=== PATIENT | female | born 1965 | race African-American/Black ===

== ENCOUNTER 2017-07-18 20:24 | Observation (INO) ==
[2017-07-18] MEDS ORDERED: hydrALAZINE 20 MG/1 ML VIAL IV STA ×2 (21:46→23:29)
[2017-07-18] MEDS ORDERED: ASPIRIN 325 MG TABLET PO STA (21:46)
[2017-07-18] MEDS ORDERED: ONDANSETRON 4 MG/2 ML VIAL IV STA (21:46)
[2017-07-18] MEDS ORDERED: ASPIRIN 325 MG TABLET ONE (21:57)
[2017-07-18] MEDS ORDERED: ONDANSETRON 4 MG/2 ML VIAL ONE (21:57)
[2017-07-18] MEDS ORDERED: hydrALAZINE 20 MG/1 ML VIAL ONE ×2 (21:57→23:29)
[2017-07-18 22:05] LABS: Basophils % 0.5 % (0.0-0.8); Eosinophils # 0.1 10*3/uL (0.0-0.87); Eosinophils % 2.5 % (0.00-10.9); Hematocrit 32.8 VOL% (35.7-47.0); Hemoglobin 9.7 GM/DL (12.0-16.0); Immature Granulocytes % 0.2 %; Immature Granulocytes Absolute 0.01 #; Lymphocytes # 1.1 10*3/uL (1.4-4.0); Mean Corpuscular HGB Conc 29.6 GM/DL (32-36); Mean Corpuscular Hemoglobin 21 PG (27-34); Mean Corpuscular Volume 71.5 FL (87-102); Mean Platelet Volume 11.1 FL (9.6-12.0); Monocytes # 0.5 10*3/uL (0.11-0.8); Monocytes % 11.9 % (1.7-12.7); Neutrophils # 2.7 10*3/uL (1.4-7.4); Neutrophils % 60.9 % (38.7-73.9); Platelet Count 327 T/CUMM (130-400); Red Blood Count 4.59 MC/CUMM (3.8-5.5); Red Cell Distribution Width 16.3 % (9.3-17.3); White Blood Count 4.4 T/CUMM (4-12)
[2017-07-18 22:25] LABS: PT Patient Result 10.1 SECS; Partial Thromboplastin Time 29.8 SECS (0-40)
[2017-07-18 22:42] LABS: Apearance,Urine CLOUDY (Clear); Barbiturates Screen,Urine Negative (Negative); Benzodiazepines Screen,Urine Negative (Negative); Bilirubin,Urine Negative (Negative); Blood, Urine Large mg/dL (Negative); Cannabinoid Screen,Urine Negative (Negative); Glucose,Urine (UA) Negative (Negative); Ketones,Urine Negative (Negative); Nitrite,Urine Negative (Negative); Opiate Screen,Urine Negative (Negative); Phencyclidine Screen,Urine Negative (Negative); Protein,Urine 100 MG/DL; RBC,Urine 3788 /HPF (0-4); Squamous Epithelial Cell,Urine Occasional /HPF (0-10); Urine Color Red (Yellow); Urine Specific Gravity 1.015 (1.001-1.035); Urine Urobilinogen < 2.0 EU/DL (0.2-1.0); WBC,Urine 43 /HPF (0-6)
[2017-07-18 22:55] LABS: Alanine Aminotransferase 13 U/L (13-56); Albumin 3.3 G/DL (3.4-5.0); Alkaline Phosphatase 78 U/L (45-117); Aspartate Amino Transferase 11 U/L (0-37); Bilirubin,Total < 0.39 MG/DL (0.2-1.0); Blood Urea Nitrogen 10 MG/DL (7-18); Calcium 8.3 MG/DL (8.5-10.1); Glucose 87 MG/DL (74-106); Osmolality,Calculated 274.5 MOS/KG (273-304); Potassium 3.6 MMOL/L (3.5-5.1); Sodium 139 MMOL/L (136-145); Total Protein 7.3 G/DL (6.4-8.3)
[2017-07-18 22:57] LABS: Troponin I Only < 0.015 NG/ML (0.00-0.045)
[2017-07-18] MEDS ORDERED: cefTRIAXone 1,000 MG in SODIUM CHLORIDE 0.9% 100 ML IV STA (23:34)
[2017-07-19] MEDS ORDERED: cefTRIAXone 1,000 MG VIAL ONE (00:21)
[2017-07-19] MEDS ORDERED: SODIUM CHLORIDE 0.9% 100 ML IV ONE (00:21)
[2017-07-19] MEDS ORDERED: LABETALOL 20 MG/4 ML SYRINGE IV PRN (00:31)
[2017-07-19 02:16] LABS: Risk Ratio 4.13; VLDL CHOLESTEROL 11.6 MG/DL
[2017-07-19] MEDS ORDERED: hydroCHLOROthiazide 25 MG TABLET ONE (09:23)
[2017-07-19] MEDS ORDERED: predniSONE 20 MG TABLET ONE (09:23)
[2017-07-19] MEDS ORDERED: ENOXAPARIN 40 MG/0.4 ML SYRINGE ONE (09:24)
[2017-07-19] MEDS ORDERED: amLODIPine 5 MG TABLET ONE (09:24)
[2017-07-19] MEDS: predniSONE 20 MG TABLET PO SCH (09:30)
[2017-07-19] MEDS: hydroCHLOROthiazide 25 MG TABLET PO SCH (09:31)
[2017-07-19] MEDS: ENOXAPARIN 40 MG/0.4 ML SYRINGE SUBCUT SCH (09:31)
[2017-07-19] MEDS: amLODIPine 10 MG TABLET PO SCH (09:43)
[2017-07-19] MEDS: LABETALOL 200 MG TABLET PO SCH ×2 (10:34→20:41)
[2017-07-19] MEDS: POTASSIUM CHLORIDE 10 MEQ TABLET PO SCH (20:41)
[2017-07-19] MEDS ORDERED: cefTRIAXone 1,000 MG in SYRINGE 1 EACH IV SCH (23:00)
[2017-07-20] MEDS ORDERED: FERROUS SULFATE 325 MG TABLET PO SCH (09:00)
[2017-07-20] MEDS ORDERED: VALSARTAN 160 MG TABLET PO SCH (09:00)
[2017-07-20] MEDS ORDERED: ASPIRIN EC 81 MG TABLET PO SCH (09:00)
[2017-07-20] MEDS: amLODIPine 10 MG TABLET PO SCH (09:11)
[2017-07-20] MEDS: ENOXAPARIN 40 MG/0.4 ML SYRINGE SUBCUT SCH (09:11)
[2017-07-20] MEDS: POTASSIUM CHLORIDE 10 MEQ TABLET PO SCH (09:11)
[2017-07-20] MEDS: hydroCHLOROthiazide 25 MG TABLET PO SCH (09:11)
[2017-07-20] MEDS: LABETALOL 200 MG TABLET PO SCH (09:11)
[2017-07-20] MEDS: predniSONE 20 MG TABLET PO SCH (09:12)
[2017-07-20 12:00] VITALS: BP 134/64
== END 2017-07-20 13:30 | disposition home or self-care (01) ==
LOC: N.ED 20:24 → N.EDINP 07-19 00:31 → INTOOBSV 07-19 00:31 → SUATTDRO 07-19 00:31 → N.4E 07-19 12:20
PROVIDERS: ADMIT Internal Medicine; ATTEND Internal Medicine

== ENCOUNTER 2018-04-21 06:03 | Inpatient (IN) ==
[2018-04-21] MEDS ORDERED: ALBUTEROL 2.5 MG/3 ML NEB RESP TX STA (06:27)
[2018-04-21] MEDS ORDERED: methylPREDNISolone SOD SUC 40 MG/1 ML VIAL IV STA (06:27)
[2018-04-21 07:04] LABS: Immature Granulocytes % 0.4 %; Immature Granulocytes Absolute 0.02 #
[2018-04-21 07:19] LABS: Basophils % 0.6 % (0.0-0.8); Eosinophils # 0.3 10*3/uL (0.0-0.87); Eosinophils % 6.4 % (0.00-10.9); Hematocrit 30.6 VOL% (35.7-47.0); Hemoglobin 8.6 GM/DL (12.0-16.0); Lymphocytes # 1.2 10*3/uL (1.4-4.0); Lymphocytes % 24.9 % (21.3-54.2); Mean Corpuscular HGB Conc 28.1 GM/DL (32-36); Mean Corpuscular Hemoglobin 20 PG (27-34); Mean Corpuscular Volume 70.5 FL (87-102); Mean Platelet Volume 11.5 FL (9.6-12.0); Monocytes # 0.5 10*3/uL (0.11-0.8); Neutrophils # 2.9 10*3/uL (1.4-7.4); Neutrophils % 58.7 % (38.7-73.9); Osmolality,Calculated 277.5 MOS/KG (273-304); Platelet Count 331 T/CUMM (130-400); Potassium 3.5 MMOL/L (3.5-5.1); Red Blood Count 4.34 MC/CUMM (3.8-5.5); Red Cell Distribution Width 17.1 % (9.3-17.3)
[2018-04-21 07:22] LABS: Hypochromasia 1+; Ovalocytes Slight; Platelet Estimate Adequate
[2018-04-21] MEDS ORDERED: ACETAMINOPHEN 325 MG TABLET PO PRN (09:57)
[2018-04-21] MEDS ORDERED: ALBUTEROL/IPRATROPIUM 3 ML NEB RESP TX PRN (10:03)
[2018-04-21] MEDS ORDERED: ONDANSETRON ODT 4 MG TABLET PO PRN (10:04)
[2018-04-21] MEDS: ALBUTEROL 2.5 MG/3 ML NEB RESP TX SCH ×4 (11:05→23:52)
[2018-04-21] MEDS ORDERED: hydrALAZINE 25 MG TABLET PO SCH (13:00)
[2018-04-21] MEDS: FUROSEMIDE 20 MG/2 ML VIAL IV SCH (15:50)
[2018-04-21] MEDS ORDERED: cefTRIAXone 1,000 MG VIAL IM SCH (18:30)
[2018-04-21] MEDS ORDERED: AMINOPHYLLINE 250 MG in SODIUM CHLORIDE 0.9% 100 ML IV ONE (18:30)
[2018-04-21] MEDS: MONTELUKAST 10 MG TABLET PO SCH (20:29)
[2018-04-21] MEDS: POTASSIUM CHLORIDE 20 MEQ TABLET PO SCH (20:29)
[2018-04-21] MEDS: methylPREDNISolone SOD SUC 40 MG/1 ML VIAL IV SCH (20:29)
[2018-04-21] MEDS ORDERED: POTASSIUM CHLORIDE 10 MEQ TABLET PO SCH (21:00)
[2018-04-21] MEDS ORDERED: LABETALOL 100 MG TABLET PO SCH (21:00)
[2018-04-21] MEDS: ALBUTEROL 2 MG TABLET PO SCH (21:51)
[2018-04-21] MEDS ORDERED: AMINOPHYLLINE 500 MG in SODIUM CHLORIDE 0.9% 480 ML IV SCH (22:30)
[2018-04-22] MEDS: ALBUTEROL 2.5 MG/3 ML NEB RESP TX SCH ×6 (03:35→23:56)
[2018-04-22 05:10] LABS: % Iron Saturation 4.3 % (18-50); Ferritin 3.7 ng/ml (8-252)
[2018-04-22 05:20] LABS: Folate 10.2 NG/ML (5.4-24.0); Hematocrit 31.5 VOL% (35.7-47.0); Hemoglobin 8.8 GM/DL (12.0-16.0); Immature Granulocytes % 0.4 %; Immature Granulocytes Absolute 0.03 #; Lymphocytes # 0.6 10*3/uL (1.4-4.0); Lymphocytes % 7.5 % (21.3-54.2); Mean Corpuscular HGB Conc 27.9 GM/DL (32-36); Mean Corpuscular Hemoglobin 20 PG (27-34); Mean Corpuscular Volume 69.7 FL (87-102); Mean Platelet Volume 11.1 FL (9.6-12.0); Monocytes # 0.3 10*3/uL (0.11-0.8); Monocytes % 4.2 % (1.7-12.7); Neutrophils # 6.7 10*3/uL (1.4-7.4); Neutrophils % 87.9 % (38.7-73.9); Platelet Count 382 T/CUMM (130-400); Red Blood Count 4.52 MC/CUMM (3.8-5.5); Vitamin B12 654 PG/ML (211-911); White Blood Count 7.6 T/CUMM (4-12)
[2018-04-22 05:58] LABS: Hypochromasia 1+; Microcytosis 1+; Ovalocytes Few; Platelet Estimate Normal
[2018-04-22 06:17] LABS: Sedimentation Rate-Westergren 33 MM/HR (0-30)
[2018-04-22] MEDS: ALBUTEROL 2 MG TABLET PO SCH ×3 (06:37→21:20)
[2018-04-22] MEDS: MONTELUKAST 10 MG TABLET PO SCH ×2 (08:42→21:20)
[2018-04-22] MEDS: ASPIRIN EC 81 MG TABLET PO SCH (08:42)
[2018-04-22] MEDS: POTASSIUM CHLORIDE 20 MEQ TABLET PO SCH ×2 (08:42→21:20)
[2018-04-22] MEDS: PANTOPRAZOLE 40 MG TABLET PO SCH (08:43)
[2018-04-22] MEDS: amLODIPine 10 MG TABLET PO SCH (08:43)
[2018-04-22] MEDS: FERROUS SULFATE 325 MG TABLET PO SCH (08:43)
[2018-04-22] MEDS: FUROSEMIDE 20 MG/2 ML VIAL IV SCH (08:44)
[2018-04-22] MEDS: methylPREDNISolone SOD SUC 40 MG/1 ML VIAL IV SCH ×2 (08:48→21:19)
[2018-04-22] MEDS ORDERED: ALUMINUM/MAGNES/SIMETH MAX STR 30 ML UDCUP PO PRN (10:23)
[2018-04-22] MEDS ORDERED: cefTRIAXone 1,000 MG VIAL IV SCH (12:42)
[2018-04-22] MEDS ORDERED: IRON SUCROSE 300 MG in SODIUM CHLORIDE 0.9% 100 ML IV ONE (12:57)
[2018-04-22] MEDS: THEOPHYLLINE ER (24 HR) 400 MG TABLET PO SCH (15:54)
[2018-04-22] MEDS: cefTRIAXone 1,000 MG in SYRINGE 1 EACH IV SCH (17:51)
[2018-04-22] MEDS: hydrALAZINE 25 MG TABLET PO SCH (21:20)
[2018-04-23] MEDS ORDERED: diphenhydrAMINE CAP 50 MG CAPSULE PO ONE (00:19)
[2018-04-23] MEDS ORDERED: MORPHINE 4 MG/1 ML VIAL ONE (01:17)
[2018-04-23] MEDS ORDERED: NITROGLYCERIN SL 0.4 MG TABLET SL ONE (01:17)
[2018-04-23] MEDS ORDERED: ASPIRIN 325 MG TABLET ONE (01:18)
[2018-04-23] MEDS: NITROGLYCERIN SL 0.4 MG TABLET SL PRN ×3 (01:20→01:30)
[2018-04-23] MEDS ORDERED: ASPIRIN CHEW 81 MG TABLET PO ONE (01:43)
[2018-04-23 01:48] LABS: Basophils % 0.2 % (0.0-0.8); Hematocrit 33.5 VOL% (35.7-47.0); Hemoglobin 9.6 GM/DL (12.0-16.0); Immature Granulocytes % 1.6 %; Immature Granulocytes Absolute 0.19 #; Lymphocytes # 0.6 10*3/uL (1.4-4.0); Lymphocytes % 5.1 % (21.3-54.2); Mean Corpuscular HGB Conc 28.7 GM/DL (32-36); Mean Corpuscular Hemoglobin 20 PG (27-34); Mean Corpuscular Volume 69.5 FL (87-102); Mean Platelet Volume 10.9 FL (9.6-12.0); Monocytes # 0.5 10*3/uL (0.11-0.8); Monocytes % 4.1 % (1.7-12.7); Neutrophils # 10.8 10*3/uL (1.4-7.4); Platelet Count 475 T/CUMM (130-400); Red Blood Count 4.82 MC/CUMM (3.8-5.5); Red Cell Distribution Width 17.2 % (9.3-17.3); White Blood Count 12.1 T/CUMM (4-12)
[2018-04-23] MEDS: ALBUTEROL 2.5 MG/3 ML NEB RESP TX SCH ×6 (03:45→22:41)
[2018-04-23] MEDS: ALBUTEROL 2 MG TABLET PO SCH ×3 (05:00→20:59)
[2018-04-23 05:02] LABS: Anisocytosis 1+; Hypochromasia 1+; Microcytosis 1+
[2018-04-23 05:03] LABS: Ovalocytes Few; Platelet Estimate Increased
[2018-04-23] MEDS: FERROUS SULFATE 325 MG TABLET PO SCH (08:25)
[2018-04-23] MEDS: methylPREDNISolone SOD SUC 40 MG/1 ML VIAL IV SCH ×2 (08:25→20:58)
[2018-04-23] MEDS: amLODIPine 10 MG TABLET PO SCH (08:26)
[2018-04-23] MEDS: POTASSIUM CHLORIDE 20 MEQ TABLET PO SCH ×2 (08:26→20:59)
[2018-04-23] MEDS: MONTELUKAST 10 MG TABLET PO SCH ×2 (08:26→20:59)
[2018-04-23] MEDS: ASPIRIN EC 81 MG TABLET PO SCH (08:26)
[2018-04-23] MEDS: FUROSEMIDE 20 MG TABLET PO SCH (08:26)
[2018-04-23] MEDS: hydrALAZINE 25 MG TABLET PO SCH (08:26)
[2018-04-23] MEDS: PANTOPRAZOLE 40 MG TABLET PO SCH (08:32)
[2018-04-23] MEDS: DICLOFENAC 1.3% PATCH 5/PACK TRANSDERM SCH ×2 (12:07→21:26)
[2018-04-23] MEDS: DILTIAZEM CD 120 MG CAPSULE PO SCH (13:13)
[2018-04-23] MEDS: LISINOPRIL 10 MG TABLET PO SCH (13:13)
[2018-04-23 13:36] LABS: Troponin I 0.042 NG/ML (0.00-0.045)
[2018-04-23] MEDS: cefTRIAXone 1,000 MG in SYRINGE 1 EACH IV SCH (17:16)
[2018-04-23] MEDS: THEOPHYLLINE ER (24 HR) 400 MG TABLET PO SCH (17:16)
[2018-04-23 19:16] LABS: Troponin I 0.044 NG/ML (0.00-0.045)
[2018-04-24] MEDS: ALBUTEROL 2.5 MG/3 ML NEB RESP TX SCH ×4 (02:35→15:14)
[2018-04-24 05:03] LABS: Calcium 8.6 MG/DL (8.5-10.1); Osmolality,Calculated 279.7 MOS/KG (273-304)
[2018-04-24] MEDS: ALBUTEROL 2 MG TABLET PO SCH ×2 (05:31→13:23)
[2018-04-24] MEDS: DICLOFENAC 1.3% PATCH 5/PACK TRANSDERM SCH (08:50)
[2018-04-24] MEDS: POTASSIUM CHLORIDE 20 MEQ TABLET PO SCH (08:51)
[2018-04-24] MEDS: FUROSEMIDE 20 MG TABLET PO SCH (08:51)
[2018-04-24] MEDS: FERROUS SULFATE 325 MG TABLET PO SCH (08:51)
[2018-04-24] MEDS: ASPIRIN EC 81 MG TABLET PO SCH (08:51)
[2018-04-24] MEDS: MONTELUKAST 10 MG TABLET PO SCH (08:51)
[2018-04-24] MEDS: DILTIAZEM CD 120 MG CAPSULE PO SCH (08:51)
[2018-04-24] MEDS: PANTOPRAZOLE 40 MG TABLET PO SCH (08:52)
[2018-04-24] MEDS: methylPREDNISolone SOD SUC 40 MG/1 ML VIAL IV SCH (08:52)
[2018-04-24] MEDS: LISINOPRIL 10 MG TABLET PO SCH (08:52)
[2018-04-24 09:17] LABS: Hemoglobin A1 (Alkaline) 98.4 % (96.5-98.5); Hemoglobin A2 (Alkaline) 1.6 % (1.5-3.5)
[2018-04-24 11:48] VITALS: BP 113/82
== END 2018-04-24 16:15 | disposition home or self-care (01) | DRG 202 ==
LOC: N.ED 06:03 → SUATTDRO 09:57 → N.EDINP 09:57 → N.5E 11:55
PROVIDERS: ADMIT Hospitalist; ATTEND Internal Medicine